=== PATIENT | female | born 1985 | race Caucasian/White ===

== ENCOUNTER 2019-01-24 05:17 | Day surgery (SDC) | payer OTHER ==
[~2019-01-24] VITALS: Ht 175.3 cm; Wt 110.6 kg
[2019-01-24] MEDS ORDERED: LACTATED RINGERS 1,000 ML IV SCH (05:38)
[2019-01-24] MEDS ORDERED: CEPH-376 PO (05:58)
[2019-01-24 06:06] VITALS: BP 128/87
[2019-01-24] MEDS ORDERED: LIDOCAINE-MPF 1%, 2ML ONE (06:10)
[2019-01-24 06:30] LABS: HCG UR SG 1.024 (1.003-1.030)
[2019-01-24] MEDS ORDERED: LIDOCAINE-MPF 1%, 2ML INFIL ONE (06:30)
[2019-01-24] MEDS ORDERED: PLEASE ENTER HEIGHT AND WEIGHT MC SCH (06:30)
[2019-01-24] MEDS ORDERED: BUPIVACAINE/PF-EPI 0.5% 1:200K ONE (06:43)
[2019-01-24] MEDS ORDERED: MIDAZOLAM 1 MG/ML, 2ML ONE (06:51)
[2019-01-24] MEDS ORDERED: FENTANYL PF 250 MCG/5ML ONE (06:52)
[2019-01-24] MEDS ORDERED: ONDANSETRON 2MG/ML, 2ML ONE (07:25)
[2019-01-24] MEDS ORDERED: CEFAZOLIN 1,000 MG ONE (07:25)
[2019-01-24] MEDS ORDERED: PROPOFOL 100 ML ONE (07:25)
[2019-01-24] MEDS ORDERED: PROPOFOL 10 MG/ML, 20ML ONE (07:25)
[2019-01-24] MEDS ORDERED: DEXAMETHASONE 4 MG/ML, 1ML ONE (07:25)
[2019-01-24] MEDS ORDERED: LORazepam 2 MG/ML, 1ML IVPush PRN (07:30)
[2019-01-24] MEDS ORDERED: PROMETHAZINE 25 MG/ML, 1ML IV PRN (07:30)
[2019-01-24] MEDS ORDERED: HYDROmorphone 2 MG/ML, 1ML IVPush PRN (07:30)
[2019-01-24] MEDS ORDERED: ONDANSETRON 2MG/ML, 2ML IV PRN (07:30)
[2019-01-24] MEDS ORDERED: OXYcodone 5 MG/5 ML ORAL.SOL UDC PO PRN (07:30)
[2019-01-24] MEDS ORDERED: ACETAMINOPHEN 325 MG TABLET PO PRN (07:30)
[2019-01-24] MEDS ORDERED: ONDANSETRON ODT 8 MG PO PRN (07:30)
[2019-01-24] MEDS ORDERED: FENTANYL PF 100 MCG/2ML IV PRN (07:30)
[2019-01-24] MEDS ORDERED: ACETAMINOPHEN 650 MG/20.3 ML UDC ONE (08:23)
== END 2019-01-24 09:35 | disposition home or self-care (01) ==
LOC: OUT 05:17
PROVIDERS: ATTEND Podiatrist Foot & Ankle Surgery
DX: M79.5 Residual foreign body in soft tissue (principal); Z86.718 Personal history of other venous thrombosis and embolism; Z79.01 Long term (current) use of anticoagulants
CPT/HCPCS: 28192; 81025; 88300; J0690; J1100; J2250; J2405; J2704; J3010; J7120

== ENCOUNTER 2019-05-07 18:20 | Inpatient (IN) | payer OTHER ==
[~2019-05-07] VITALS: Ht 175.3 cm; Wt 98.0 kg
[~2019-05-07 18:20] MED LIST: CEPH-376 PO
[2019-05-07 18:48] LABS: BASOPHILS # (AUTO) 0.05 x10^3/uL (0-0.1); BASOPHILS % (AUTO) 0 % (0-1); EOSINOPHILS # (AUTO) 0.11 x10^3/uL (0-0.4); EOSINOPHILS % (AUTO) 1 % (1-7); LYMPHOCYTES # (AUTO) 2.16 x10^3/uL (1-3.4); LYMPHOCYTES % (AUTO) 20 % (22-44); MD NO; MEAN CORPUSCULAR HEMOGLOBIN 31.6 pg (27.0-34.8); MEAN CORPUSCULAR HGB CONC 32.7 g/dL (32.4-35.8); MEAN CORPUSCULAR VOLUME 96.5 fL (80-100); MONOCYTES # (AUTO) 0.54 x10^3/uL (0.2-0.8); MONOCYTES % (AUTO) 5 % (2-9); NEUTROPHILS # (AUTO) 7.78 x10^3/uL (1.8-6.8); NEUTROPHILS % (AUTO) 73 % (42-75); PLATELET COUNT 236 x10^3/uL (130-400); RED BLOOD COUNT 4.85 x10^6/uL (3.82-5.3); RED CELL DISTRIBUTION WIDTH 13.8 % (9.6-15.2)
[2019-05-07 18:55] LABS: INTERNATIONAL NORMALIZED RATIO 0.94 (0.93-1.1); PROTHROMBIN TIME 9.9 Seconds (9.6-11.5)
[2019-05-07 18:57] LABS: ALANINE AMINOTRANSFERASE 25 U/L (12-78); ANION GAP 11 mmol/L (5-15); CALCIUM 9.1 mg/dL (8.5-10.1); CHLORIDE 109 mmol/L (98-107); CREATININE 0.86 mg/dL (0.55-1.02)
[2019-05-07 19:00] LABS: ALKALINE PHOSPHATASE 66 U/L (45-117); BILIRUBIN,TOTAL 0.4 mg/dL (0.2-1.0); TOTAL PROTEIN 7.7 g/dL (6.4-8.2)
--- NOTE | 2019-05-07 20:04 | NUR ---
pt to room from lobby
--- NOTE | 2019-05-07 20:40 | NUR ---
LATE ENTRY: PT. REPORTS WAS FOUND TO HAVE A DVT IN HER RIGHT LEG DURING AN US TODAY. PT. REPORTS SWELLING/PAIN TO RIGHT ANKLE. HX OF FACTOR 5 LEDIN CLOTTING DISORDER. HAS HAD A STENT PLACED IN THE PAST 9 YEARS AGO. DENIES ANY CP/SOB OR ANY OTHER CONCERNS. IS NOT ON BLOOD THINNERS. CONTINUOUS PULSE OX AND B/P MONITORS PLACED. CALL LIGHT IN REACH. ALL SAFETY MEASURES OBERVED.
--- NOTE | 2019-05-07 21:09 | NUR ---
DR. VALE AT BS TO EVAL PT. AND DISCUSS POC.
[2019-05-07] MEDS ORDERED: SODIUM CHLORIDE FLUSH 10ML SYR IVF ONE (22:00)
--- NOTE | 2019-05-07 22:05 | NUR ---
LATE ENTRY: PT. SITTING ON GURNEY LOOKING AT A MAGAZINE. NO DISTRESS NOTED. PT. DENIES NEEDS. IV ESTABLISHED FOR VENOGRAM. PT. AWARE OF PLAN OF CARE. CALL LIGHT IN REACH. SAFETY MEASURES MAINTAINED.
--- NOTE | 2019-05-07 22:49 | NUR ---
PT. TO CT VIA [facility].
[2019-05-07] MEDS ORDERED: OMNIPAQUE 350 MG/ML, 150 ML BOTTLE ONE (23:07)
--- NOTE | 2019-05-07 23:12 | NUR ---
PT. BACK FROM CT.
--- NOTE | 2019-05-07 23:17 | NUR ---
DR. VALE IN TO DISCUSS POSSIBLE DISPO WITH PT. DR. KEYES ASSUMING CARE FOR DR. VALE. CT RESULTS PENDING.
[2019-05-07] MEDS ORDERED: HEPARIN 25,000 UNITS/500ML PMX 500 ML ONE (23:23)
[2019-05-07] MEDS ORDERED: HEPARIN 5,000 UNITS/ML, 1ML ONE (23:23)
[2019-05-07] MEDS ORDERED: HEPARIN 25,000 UNITS/500ML PMX 500 ML IV PRN (23:30)
[2019-05-07] MEDS ORDERED: HEPARIN 5,000 UNITS/ML, 1ML IV ONE (23:30)
--- NOTE | 2019-05-07 23:46 | NUR ---
REPORT TO AUGUST LENZ. FLOOR READY FOR PT. TRANSPORT.
[2019-05-08 01:18] VITALS: BP 126/86
[2019-05-08] MEDS ORDERED: HEPARIN 5,000 UNITS/ML, 1ML IV PRN (02:00)
[2019-05-08] MEDS: ACETAMINOPHEN 325 MG TABLET PO PRN ×3 (03:10→21:49)
[2019-05-08 03:16] VITALS: BP 114/79
[2019-05-08 07:15] VITALS: BP 123/85
[2019-05-08 12:23] VITALS: BP 120/77
[2019-05-08] MEDS ORDERED: LIDOCAINE-MPF 1%, 5ML ONE (14:20)
[2019-05-08] MEDS ORDERED: NALOXONE 1 MG/ML, 2ML ONE (14:31)
[2019-05-08] MEDS ORDERED: FENTANYL PF 100 MCG/2ML ONE (14:31)
[2019-05-08] MEDS: ALTEPLASE 10 MG in SODIUM CHLORIDE 0.9% 90 ML IV SCH ×2 (15:00→23:37)
[2019-05-08] MEDS ORDERED: ONDANSETRON 2MG/ML, 2ML ONE (15:20)
[2019-05-08] MEDS ORDERED: VISIPAQUE 270 MG/ML, 50ML BOTTLE ONE (16:32)
[2019-05-08] MEDS: HEPARIN 25,000 UNITS/500ML PMX 500 ML IV SCH (17:00)
[2019-05-08] MEDS: SODIUM CHLORIDE 0.9% IV SCH (17:00)
[2019-05-08] MEDS: HEPARIN IV SCH (17:00)
[2019-05-08] MEDS ORDERED: ONDANSETRON 2MG/ML, 2ML IVPush PRN (17:30)
[2019-05-08] MEDS: MORPHINE SULFATE 4 MG/ML, 1ML IVPush PRN ×2 (18:18→22:24)
[2019-05-08] MEDS ORDERED: ACETAMINOPHEN 325 MG TABLET ONE (21:48)
[2019-05-08] MEDS: BUTALB/APAP/CAFFEINE 50MG/325MG/40MG PO PRN (22:39)
[2019-05-09] MEDS: BUTALB/APAP/CAFFEINE 50MG/325MG/40MG PO PRN (02:38)
[2019-05-09] MEDS: MORPHINE SULFATE 4 MG/ML, 1ML IVPush PRN ×3 (04:24→11:44)
[2019-05-09 07:49] LABS: ALANINE AMINOTRANSFERASE 19 U/L (12-78); ALBUMIN 3.2 g/dL (3.4-5.0); ANION GAP 8 mmol/L (5-15); CALCIUM 8.5 mg/dL (8.5-10.1); CHLORIDE 111 mmol/L (98-107); CREATININE 0.85 mg/dL (0.55-1.02)
[2019-05-09 07:51] LABS: ALKALINE PHOSPHATASE 57 U/L (45-117); BILIRUBIN,TOTAL 0.4 mg/dL (0.2-1.0); TOTAL PROTEIN 6.4 g/dL (6.4-8.2)
[2019-05-09 07:54] LABS: BASOPHILS # (AUTO) 0.07 x10^3/uL (0-0.1); BASOPHILS % (AUTO) 1 % (0-1); EOSINOPHILS # (AUTO) 0.08 x10^3/uL (0-0.4); EOSINOPHILS % (AUTO) 1 % (1-7); LYMPHOCYTES % (AUTO) 21 % (22-44); MD NO; MEAN CORPUSCULAR HEMOGLOBIN 31.1 pg (27.0-34.8); MEAN CORPUSCULAR HGB CONC 32.7 g/dL (32.4-35.8); MEAN PLATELET VOLUME 8.2 fL (7.4-10.4); MONOCYTES % (AUTO) 6 % (2-9); NEUTROPHILS # (AUTO) 5.99 x10^3/uL (1.8-6.8); NEUTROPHILS % (AUTO) 71 % (42-75); PLATELET COUNT 182 x10^3/uL (130-400); RED BLOOD COUNT 4.37 x10^6/uL (3.82-5.3); RED CELL DISTRIBUTION WIDTH 13.3 % (9.6-15.2)
[2019-05-09] MEDS: HEPARIN IV SCH (08:16)
[2019-05-09] MEDS: SODIUM CHLORIDE 0.9% IV SCH (08:16)
[2019-05-09] MEDS: HEPARIN 25,000 UNITS/500ML PMX 500 ML IV SCH (08:27)
[2019-05-09] MEDS ORDERED: BUTALB/APAP/CAFFEINE 50MG/325MG/40MG PO PRN (08:30)
[2019-05-09] MEDS ORDERED: PANTOPRAZOLE 40 MG IV IVPush SCH (09:00)
[2019-05-09] MEDS: ALTEPLASE 10 MG in SODIUM CHLORIDE 0.9% 90 ML IV SCH (10:47)
[2019-05-09] MEDS ORDERED: LIDOCAINE-MPF 1%, 5ML ONE ×2 (12:22→12:23)
[2019-05-09] MEDS ORDERED: MIDAZOLAM 1 MG/ML, 5ML ONE (12:34)
[2019-05-09] MEDS ORDERED: FLUMAZENIL 0.1 MG/1 ML, 5ML ONE (12:34)
[2019-05-09] MEDS ORDERED: FENTANYL PF 100 MCG/2ML ONE (12:34)
[2019-05-09] MEDS ORDERED: NALOXONE 1 MG/ML, 2ML ONE (12:34)
[2019-05-09] MEDS ORDERED: HEPARIN 25,000 UNITS/500ML PMX 500 ML IV PRN (14:30)
[2019-05-09] MEDS ORDERED: HEPARIN 5,000 UNITS/ML, 1ML IV ONE (14:30)
[2019-05-10] MEDS: HEPARIN 5,000 UNITS/ML, 1ML IV PRN ×2 (00:11→06:44)
[2019-05-10] MEDS ORDERED: ACETAMINOPHEN 325 MG TABLET ONE (05:20)
[2019-05-10] MEDS: PANTOPROZOLE 40MG TABLET PO SCH (05:24)
[2019-05-10] MEDS: ACETAMINOPHEN 325 MG TABLET PO PRN (05:25)
[2019-05-10] MEDS: RIVAROXABAN 15 MG TABLET PO SCH ×2 (09:20→17:22)
[2019-05-10 18:37] VITALS: BP 129/82
[2019-05-11 03:07] VITALS: BP 109/74
[2019-05-11] MEDS: PANTOPROZOLE 40MG TABLET PO SCH (05:29)
[2019-05-11 07:09] VITALS: BP 121/80
[2019-05-11 07:10] VITALS: BP 121/80
[2019-05-11] MEDS: RIVAROXABAN 15 MG TABLET PO SCH (07:47)
[2019-05-11] MEDS ORDERED: RIVA20TA PO (10:19)
[2019-05-11] MEDS ORDERED: RIVA15TA PO (10:19)
[2019-05-31] MEDS ORDERED: RIVAROXABAN 20 MG TABLET PO SCH (08:00)
== END 2019-05-11 11:51 | disposition home or self-care (01) | DRG 315 ==
LOC: ED 20:29 → EDIP 23:17 → 3NE 05-08 00:15 → UNDODISIN 05-08 13:16 → CCU 05-08 16:08 → 4NOR 05-10 18:29 → DCLOUNGE 05-11 11:38
PROVIDERS: ADMIT Family Medicine; ATTEND Internal Medicine
PROC: 3E03317 Introduction of Other Thrombolytic into Peripheral Vein, Percutaneous Approach (ICD-10-PCS; 2019-05-08)
PROC: B51B1ZZ Fluoroscopy of Right Lower Extremity Veins using Low Osmolar Contrast (ICD-10-PCS; 2019-05-08)
PROC: 3E03317 Introduction of Other Thrombolytic into Peripheral Vein, Percutaneous Approach (ICD-10-PCS; principal; 2019-05-09)
DX: T82.856A Stenosis of peripheral vascular stent, initial encounter (principal); I82.411 Acute embolism and thrombosis of right femoral vein; D68.51 Activated protein C resistance; I82.421 Acute embolism and thrombosis of right iliac vein; I82.431 Acute embolism and thrombosis of right popliteal vein; I82.441 Acute embolism and thrombosis of right tibial vein; I82.890 Acute embolism and thrombosis of other specified veins; T82.868A Thrombosis due to vascular prosthetic devices, implants and grafts, initial encounter; Y83.8 Other surgical procedures as the cause of abnormal reaction of the patient, or of later complication, without mention of misadventure at the time of the procedure; Y92.89 Other specified places as the place of occurrence of the external cause; E66.9 Obesity, unspecified; E28.2 Polycystic ovarian syndrome; Z68.31 Body mass index [BMI] 31.0-31.9, adult
CPT/HCPCS: 36415; 37212; 37214; 70450; 73701; 74176; 76937; 80053; 83735; 85025; 85520; 85610; 87081; 99156; 99157; 99285; C1894; G0378; J1644; J2250; J2405; J2997; J3010; Q9966; Q9967; C1751; C1769; C9113; J2270; J2310; J7040

== ENCOUNTER → 2020-08-01 | Outpatient (CLI) | payer OTHER ==
[~2020-08-01] MED LIST changes: +RIVA15TA PO; +RIVA20TA PO
== END | disposition home or self-care (01) ==
LOC: CFH 13:14
PROVIDERS: ATTEND Specialist
DX: I82.431 Acute embolism and thrombosis of right popliteal vein (principal); I82.591 Chronic embolism and thrombosis of other specified deep vein of right lower extremity